=== PATIENT | female | born 1945 | race Hispanic/Latino ===

== ENCOUNTER 2018-02-26 18:06 | Emergency (ER) | payer MEDICARE ==
[~2018-02-26] VITALS: Ht 160 cm; Wt 81.6 kg
--- NOTE | 2018-02-26 20:51 | Diagnostic Imaging Report ---
EXAMINATION: CT of the abdomen and pelvis with contrast. TECHNIQUE: Spiral CT images of the abdomen and pelvis were performed from the lung bases to the lesser trochanters after the intravenous administration of 100 cc of Isovue-300 and the oral administration of water. Coronal and sagittal reformatted images were obtained. COMPARISON: None. CLINICAL HISTORY:Constipation DISCUSSION: ABDOMEN/PELVIS: LOWER THORAX:Lung bases are clear. Mild atherosclerotic calcification of the aortic valves and coronary arteries and thoracic aorta. HEPATOBILIARY: No focal hepatic lesions. No intra or extrahepatic biliary ductal dilation. GALLBLADDER: No radio-opaque stones or sludge. No wall thickening. SPLEEN: No splenomegaly. PANCREAS: No focal masses or ductal dilatation. ADRENALS: No adrenal nodules. KIDNEYS/URETERS: No hydronephrosis, stones, or solid mass lesions. PELVIC ORGANS/BLADDER: Mild circumferential bladder wall thickening. No focal lesions. This is unremarkable. No adnexal masses. PERITONEUM/RETROPERITONEUM: No free air or fluid. LYMPH NODES: No intra-abdominal, retroperitoneal, pelvic or inguinal lymphadenopathy. VESSELS: The celiac trunk,superior and inferior mesenteric and bilateral renal arteries are patent The portal, superior mesenteric and splenic veins are patent. Atherosclerotic calcification of the abdominal aorta and proximal iliac vessels GI TRACT: No bowel dilation or evidence of obstruction. No pericolonic inflammatory changes. Very mild amount of retained stool in the colon. No wall thickening. BONES AND SOFT TISSUE: Multilevel degenerative disc changes in the lumbosacral spine with leftward curvature. No aggressive lytic lesions. Small fat-containing umbilical hernia. IMPRESSION: 1. No acute abdominopelvic abnormalities. No bowel dilation or evidence of obstruction. Only very mild retained stool is noted in the colon. 2. Mild circumferential bladder wall thickening. No focal lesions. Correlate for cystitis. Signed by: Dr. Stefano Hernández M.D. on 02/26/2018 8:47 PM
== END 2018-02-26 21:24 | disposition home or self-care (01) ==
LOC: FSED 18:06
DX: R10.84 Generalized abdominal pain (principal); N30.90 Cystitis, unspecified without hematuria; E78.5 Hyperlipidemia, unspecified; F41.9 Anxiety disorder, unspecified; K21.9 Gastro-esophageal reflux disease without esophagitis; Z87.19 Personal history of other diseases of the digestive system
CPT/HCPCS: 74177; 80053; 81003; 82553; 84484; 85025; 99284

== ENCOUNTER → 2018-05-05 | Day surgery (SDC) | payer MEDICARE ==
[2018-05-01 10:34] LABS: BASOPHILS # (AUTO) 0.1 (0.0-0.1); BASOPHILS % 0.9 % (0.0-1.0); EOSINOPHILS # (AUTO) 0.3 (0.0-0.4); EOSINOPHILS % 5.3 % (0.0-6.0); HEMATOCRIT 40.4 % (34.2-44.1); HEMOGLOBIN 13.1 g/dL (12.0-16.0); LYMPHOCYTES # (AUTO) 1.7 (1.0-3.2); LYMPHOCYTES % 31.1 % (18.0-39.1); MEAN CORPUSCULAR HEMOGLOBIN 29.6 pg (28-32); MEAN CORPUSCULAR HGB CONC 32.4 g/dL (31-35); MEAN CORPUSCULAR VOLUME 91.2 fL (81-99); MONOCYTES # (AUTO) 0.6 (0.2-0.8); MONOCYTES % 10.8 % (4.4-11.3); NEUTROPHILS # (AUTO) 2.7 (2.1-6.9); NEUTROPHILS % 51.1 % (38.7-80.0); PLATELET COUNT 202 x10e3/uL (140-360); RED BLOOD COUNT 4.43 x10e6/uL (3.6-5.1); RED CELL DISTRIBUTION WIDTH 12.6 % (11.7-14.4)
[2018-05-01 10:45] LABS: ALANINE AMINOTRANSFERASE 37 IU/L (0-55); ALBUMIN 3.6 g/dL (3.5-5.0); ALBUMIN/GLOBULIN RATIO 1.2 (0.8-2.0); ALKALINE PHOSPHATASE 100 IU/L (40-150); AMYLASE 95 U/L (25-125); ANION GAP 12.7 mmol/L (8-16); BLOOD UREA NITROGEN 7 mg/dL (7-26); BUN/CREATININE RATIO 9 (6-25); CARBON DIOXIDE 27 mmol/L (22-29); CHLORIDE 103 mmol/L (98-107); CREATININE, SERUM 0.78 mg/dL (0.57-1.11); EST GLOMERULAR FILTRATION RATE > 60 ML/MIN (60-); GLUCOSE 100 mg/dL (74-118); POTASSIUM 3.7 mmol/L (3.5-5.1); SODIUM 139 mmol/L (136-145)
[~2018-05-05] MED LIST: ADVIL; ATORVASTATIN CA20 MG PO; CALCIUM600 MG; FENTANYL CITRATE/PF 100MCG/2 ML INJ ONE; GLUCOSAMINE &1 EAC1; KRILL OIL; LOSARTAN-HCTZ1 EAC2; MIDAZOLAM HCL 2 MG/2 ML VIAL ONE; NEXIUM OTC; POLYETHYLENE GL17 GM PO; PROPOFOL IV EMULSION 10 MG/ML 50 ML VIAL ONE; SERTRALINE HCL100 MG PO; VITAMIN B12-FO1 EACH; VITAMIN D
--- OUTSIDE RECORDS SUMMARY | 2018-05-05 05:28 | XMS REPORT ---
[facility] Address Unknown Phone Unavailable Care Team Providers Care Lead Software Development Engineer Name Role Phone Mervin BROWNING Unavailable Unavailable Problems This patient has no known problems. Allergies, Adverse Reactions, Alerts This patient has no known allergies or adverse reactions. Medications This patient has no known medications. Results Test Description Test Time Test Comments Text Results Atomic Results Result Comments CT ABD/PEL WITH CONTRAST-HOPD 2018-02-26 20:44:00 [place] [address] Patient Name: FÉLIX ROBERSON MR #: [id number] : 1945 Age/Sex: 72/F Req #: [id number] Adm Physician: Ordered by: DANN STANTON MD Report #: [id number] Location: [facility] Room/Bed: Procedure: [id number] HOPD/CT ABD/PEL WITH CONTRAST-HOPD Exam Date: 02/26/18 Exam Time: 1949 REPORT STATUS: Signed EXAMINATION: CT of the abdomen and pelvis with contrast. TECHNIQUE: Spiral CT images of the abdomen and pelvis were performed from the lung bases to the lesser trochanters after the intravenous administration of 100 cc of Isovue-300 and the oral administration of water. Coronal and sagittal reformatted images were obtained. COMPARISON: None. CLINICAL HISTORY:Constipation DISCUSSION: ABDOMEN/PELVIS: LOWER THORAX:Lung bases are clear. Mild atherosclerotic calcification of the aortic valves and coronary arteries and thoracic aorta. HEPATOBILIARY: No focal hepatic lesions. No intra or extrahepatic biliary ductal dilation. GALLBLADDER: No radio-opaque stones or sludge. No wall thickening. SPLEEN: No splenomegaly. PANCREAS: No focal masses or ductal dilatation. ADRENALS: No adrenal nodules. KIDNEYS/URETERS: No hydronephrosis, stones, or solid mass lesions. PELVIC ORGANS/BLADDER: Mild circumferential bladder wall thickening. No focal lesions. This is unremarkable. No adnexal masses. PERITONEUM/RETROPERITONEUM: No free air or fluid. LYMPH NODES: No intra- abdominal, retroperitoneal, pelvic or inguinal lymphadenopathy. VESSELS: The celiac trunk,superior and inferior mesenteric and bilateral renal arteries are patent The portal, superior mesenteric and splenic veins are patent. Atherosclerotic calcification of the abdominal aorta and proximal iliac vessels GI TRACT: No bowel dilation or evidence of obstruction. No pericolonic inflammatory changes. Very mild amount of retained stool in the co shayne. No wall thickening. BONES AND SOFT TISSUE: Multilevel degenerative disc changes in the lumbosacral spine with leftward curvature. No aggressive lytic lesions. Small fat-containing umbilical hernia. IMPRESSION: 1. No acute abdominopelvic abnormalities. No bowel dilation or evidence of obstruction. Only very mild retained stool is noted in the colon. 2. Mild circumferential bladder wall thickening. No focal lesions. Correlate for cystitis. Signed by: Dr. Brian Hernández M.D. on 02/26/2018 8:47 PM Dictated By: BRIAN HERNÁNDEZ MD 46 Transcribed By: MINNIE on 02/26/182046 COPY TO: DANN STANTON MD
[2018-05-05 09:35] VITALS: BP 126/74
== END | disposition home or self-care (01) ==
LOC: OR 05:25
PROVIDERS: ATTEND Internal Medicine Gastroenterology
DX: K29.70 Gastritis, unspecified, without bleeding (principal); K31.7 Polyp of stomach and duodenum; K21.0 Gastro-esophageal reflux disease with esophagitis; K44.9 Diaphragmatic hernia without obstruction or gangrene; Z86.010 Personal history of colon polyps; K59.00 Constipation, unspecified; D72.820 Lymphocytosis (symptomatic); I10 Essential (primary) hypertension; E78.5 Hyperlipidemia, unspecified; M19.90 Unspecified osteoarthritis, unspecified site; F32.9 Major depressive disorder, single episode, unspecified; Z01.810 Encounter for preprocedural cardiovascular examination; Z01.812 Encounter for preprocedural laboratory examination; Z79.1 Long term (current) use of non-steroidal anti-inflammatories (NSAID); Z68.30 Body mass index [BMI] 30.0-30.9, adult; Z87.01 Personal history of pneumonia (recurrent); Z83.79 Family history of other diseases of the digestive system
CPT/HCPCS: 36415; 43239; 80053; 82150; 85025; 93005; J2250

== ENCOUNTER 2020-08-16 08:25 | Emergency (ER) | payer MEDICARE ==
[~2020-08-16] VITALS: Ht 160 cm; Wt 78.5 kg
[~2020-08-16 08:25] MED LIST changes: -FENTANYL CITRATE/PF 100MCG/2 ML INJ ONE; -MIDAZOLAM HCL 2 MG/2 ML VIAL ONE; -PROPOFOL IV EMULSION 10 MG/ML 50 ML VIAL ONE
[2020-08-16] MEDS ORDERED: IBUPROFEN IB200 MG PO (08:55)
[2020-08-16] MEDS ORDERED: ULTRAM 50MG50 MG PO ×2 (08:55→09:01)
[2020-08-16] MEDS ORDERED: PREDNISONE 20 MG TAB PO ONE (09:00)
[2020-08-16] MEDS ORDERED: KETOROLAC TROMETHAMINE 30 MG/ML VIAL IM ONE (09:00)
== END 2020-08-16 09:06 | disposition home or self-care (01) ==
LOC: FSED 08:50
DX: M54.5 Low back pain (principal); G89.29 Other chronic pain; G57.01 Lesion of sciatic nerve, right lower limb; I10 Essential (primary) hypertension; E78.5 Hyperlipidemia, unspecified
CPT/HCPCS: 99283; J1885; J7512

== ENCOUNTER 2021-08-29 17:41 | Emergency (ER) | payer MEDICARE, OTHER ==
[~2021-08-29] VITALS: Ht 160 cm; Wt 76.2 kg
[~2021-08-29 17:41] MED LIST changes: +IBUPROFEN IB200 MG PO; +ULTRAM 50MG50 MG PO
[2021-08-29] MEDS ORDERED: KETOROLAC TROMETHAMINE 30 MG/ML VIAL IV STA (18:05)
[2021-08-29] MEDS ORDERED: KETOROLAC TROMETHAMINE 30 MG/ML VIAL ONE (18:42)
[2021-08-29] MEDS ORDERED: KETOROLAC TROME10 MG PO (20:31)
[2021-08-29] MEDS ORDERED: CEFDINIR300 MG PO (20:31)
[2021-08-29 20:38] VITALS: BP 162/72
== END 2021-08-29 20:38 | disposition home or self-care (01) ==
LOC: FSED 18:06
DX: N39.0 Urinary tract infection, site not specified (principal); R10.32 Left lower quadrant pain; I10 Essential (primary) hypertension; E78.5 Hyperlipidemia, unspecified; Z79.899 Other long term (current) drug therapy
CPT/HCPCS: 74176; 80053; 81003; 85025; 96374; 99284; J1885

== ENCOUNTER → 2024-01-13 | Day surgery (SDC) | payer MEDICARE ==
[2024-01-09 13:58] LABS: BASOPHILS % 0.6 % (0.0-1.0); EOSINOPHILS # (AUTO) 0.4 (0.0-0.4); EOSINOPHILS % 7.8 % (0.0-6.0); HEMATOCRIT 35.1 % (34.2-44.1); HEMOGLOBIN 11.1 g/dL (12.0-16.0); LYMPHOCYTES # (AUTO) 1.3 (1.0-3.2); LYMPHOCYTES % 25.9 % (18.0-39.1); MEAN CORPUSCULAR HEMOGLOBIN 30.1 pg (28-32); MEAN CORPUSCULAR HGB CONC 31.6 g/dL (31-35); MEAN CORPUSCULAR VOLUME 95.1 fL (81-99); MONOCYTES # (AUTO) 0.7 (0.2-0.8); MONOCYTES % 12.6 % (4.4-11.3); NEUTROPHILS # (AUTO) 2.7 (2.1-6.9); NEUTROPHILS % 52.7 % (38.7-80.0); PLATELET COUNT 276 x10e3/uL (140-360); RED BLOOD COUNT 3.69 x10e6/uL (3.6-5.1); RED CELL DISTRIBUTION WIDTH 14.6 % (11.7-14.4); WHITE BLOOD COUNT 5.14 x10e3/uL (4.8-10.8)
[~2024-01-13] MED LIST changes: +ARICEPT5 MG PO; +CEFDINIR300 MG PO; +CYMBALTA30 MG; +KETOROLAC TROME10 MG PO; +LIDOCAINE HCL 2% LOCAL INJ 5 ML SDV VIAL INJ ONE; +LOSARTAN POTASS50 MG PO; +MAGNESIUM OXID400 MG PO; +MEMANTINE HCL10 MG PO; +MIRALAX17 GM PO; +PROPOFOL IV EMULSION 10 MG/ML 20 ML VIAL ONE; +PROTONIX20 MG PO
[2024-01-13] MEDS: LACTATED RINGER'S 1,000 ML ONE (13:01)
[2024-01-13 14:59] VITALS: TEMP 97.8
[2024-01-13 15:20] VITALS: BP 147/72; PULSE 84; RESP 18; O2SAT 100
== END | disposition home or self-care (01) ==
LOC: OR 11:26
PROVIDERS: ATTEND Internal Medicine Gastroenterology
DX: K21.00 Gastro-esophageal reflux disease with esophagitis, without bleeding (principal); K29.70 Gastritis, unspecified, without bleeding; K22.10 Ulcer of esophagus without bleeding; K21.9 Gastro-esophageal reflux disease without esophagitis; K44.9 Diaphragmatic hernia without obstruction or gangrene; K57.90 Diverticulosis of intestine, part unspecified, without perforation or abscess without bleeding; K59.00 Constipation, unspecified; K64.8 Other hemorrhoids; R63.4 Abnormal weight loss; R76.0 Raised antibody titer; A53.0 Latent syphilis, unspecified as early or late; I10 Essential (primary) hypertension; F41.9 Anxiety disorder, unspecified; Z01.810 Encounter for preprocedural cardiovascular examination; Z01.812 Encounter for preprocedural laboratory examination; Z79.899 Other long term (current) drug therapy; Z83.79 Family history of other diseases of the digestive system
CPT/HCPCS: 36415; 43239; 85025; 93005; J2001; J2704; J7121

== ENCOUNTER 2024-06-06 16:51 | Emergency (ER) | payer MEDICARE ==
[~2024-06-06] VITALS: Ht 160 cm; Wt 66.8 kg
[~2024-06-06 16:51] MED LIST changes: -LIDOCAINE HCL 2% LOCAL INJ 5 ML SDV VIAL INJ ONE; -PROPOFOL IV EMULSION 10 MG/ML 20 ML VIAL ONE
[2024-06-06] MEDS: GLUCAGON FOR INJ 1 MG VIAL IV ONE (17:36)
[2024-06-06 18:40] VITALS: PULSE 66; RESP 16; TEMP 98.2; O2SAT 99
== END 2024-06-06 18:40 | disposition home or self-care (01) ==
LOC: FSED 16:58
DX: R09.89 Other specified symptoms and signs involving the circulatory and respiratory systems (principal); T18.108A Unspecified foreign body in esophagus causing other injury, initial encounter; I10 Essential (primary) hypertension; E78.5 Hyperlipidemia, unspecified; F03.90 Unspecified dementia, unspecified severity, without behavioral disturbance, psychotic disturbance, mood disturbance, and anxiety; G62.9 Polyneuropathy, unspecified; K21.9 Gastro-esophageal reflux disease without esophagitis
CPT/HCPCS: 36415; 71046; 80048; 82948; 85025; 96374; 99284; J1610